=== PATIENT | female | born 2000 | race Caucasian/White ===

== ENCOUNTER 2025-03-28 22:11 | Emergency (ER) | payer OTHER ==
[~2025-03-28] VITALS: Ht 160 cm; Wt 96.6 kg
[2025-03-28 22:59] LABS: IMMATURE GRANULOCYTE ABSOLUTE 0.02 K/uL (0-1); NUCLEATED RED BLOOD CELLS 0.0 % (0.0-0.19); PLATELET COUNT (AUTO) 307 K/uL (130-400); RED BLOOD CELL COUNT(AUTO) 4.34 MIL/uL (4.00-5.50); RED CELL DISTRIBUTION WIDTH 13.0 % (11.0-15.5); WHITE BLOOD COUNT (AUTO) 8.8 K/uL (4.8-10.8)
[2025-03-28 23:18] LABS: APPEARANCE,URINE CLOUDY (CLEAR); GLUCOSE, URINE (UA) NEGATIVE (NEGATIVE); LEUKOCYTE ESTERASE ,URINE 250 Leu/uL (NEGATIVE); NITRATE,URINE NEGATIVE (NEGATIVE); OCCULT BLOOD,URINE LARGE (NEGATIVE)
[2025-03-28 23:19] LABS: ADD UA MICROSCOPIC YES
[2025-03-28 23:21] LABS: CREATININE 0.8 mg/dL (0.5-1.0); GLOMERULAR FILTR. RATE CALC 105.0 mL/min (>90); GLUCOSE,RANDOM 94.0 mg/dL (70-105); SODIUM SERUM 140.0 mmol/L (136-145); UREA NITROGEN, BLOOD 8.0 mg/dL (7-18)
[2025-03-28 23:24] LABS: SQUAMOUS EPITHELIAL CELL,UR MOD /HPF (0-2)
--- NOTE | 2025-03-28 23:45 | HMCIMG ---
EXAM: US Obstetrical, Complete <14 weeks. CLINICAL HISTORY: Vaginal bleeding during . TECHNIQUE: Transabdominal and transvaginal imaging of the maternal pelvis and a < 14-week gestation with image documentation. COMPARISON: None provided. FINDINGS: GESTATION: Single intrauterine gestational sac with pole. Yolk sac seen. CRL measures 1.98 cm, corresponding to 8 weeks 4 days. Gestational sac measures 2.95 cm, corresponding to 7 weeks 0 days. No cardiac activity. UTERUS: Measures 10.6 x 5.7 x 5.7 cm. No myometrial mass. CERVIX: Closed. Trace fluid within the cervix. OVARIES: Unremarkable. No mass. FREE FLUID: No free fluid. IMPRESSION: A pole seen within the uterus with no cardiac activity suggests early loss. /[place]
[2025-03-28 23:55] LABS: HCG,QUANTITATIVE 17090.0 mIU/mL (0-5)
--- NOTE | 2025-03-29 00:31 | ERN ---
General Chief Complaint: OB<20 weeks gest. Stated Complaint: 10.2 WEEKS, ABD PAIN. VAGINAL BLEEDING Time Seen by MD: 22:38 Time Seen by Midlevel: 22:38 Source: patient History of Present Illness Initial Comments 24-year-old female presents to the emergency department for evaluation of lower abdominal pain and vaginal bleeding that started earlier today. Patient is a ab 2 she has an appointment scheduled with her OBGYN in seven days. Allergies: Coded Allergies: No Known Allergies (Unverified Allergy, Unknown, 03/28/25) Past Medical History Past Medical History: No Pertinent History Past Surgical History: Female( History) LMP: Jan 15, 2025 : 4 Para: 1 Aborts: 2 ROS Dictation CONSTITUTIONAL: Negative except for HPI HEAD/FACE: Negative except for HPI EENT: Negative except for HPI RESPIRATORY: Negative except for HPI GASTROINTESTINAL/ABDOMINAL: Negative except for HPI GENITOURINARY: Negative except for HPI MUSCULOSKELETAL: Negative except for HPI INTEGUMENTARY: Negative except for HPI NEUROLOGICAL/PSYCH: Negative except for HPI HEMATOLOGIC/LYMPHATIC: Negative except for HPI All Systems Negative, Except as noted above. 13 point review of systems assessed and all negative except for above. Physical Exam Physical Exam Dictation Vital Signs reviewed General Appearance: Alert, oriented x 3, no acute distress, well developed, nourished. Head and Face: non-traumatic. Eyes: PERRL, pink conjunctivas, eyelid no trauma, anterior chamber with arcus senilis. Ears: Pinnas intact and no signs of trauma or erythema ear canals clear and no discharge TM no erythema Nose: No discharge, no bleeding. Oropharynx: Mouth normal, tongue pink, pharynx clear,no erythema, tonsils no exudates, no abscesses noted, mucous membrane moist Neck: Supple, non-tender, no thyromegaly, no masses, no JVD, no bruits Breast:Deferred Chest:No tenderness, no crepitus, no paradoxical movement, no retractions Lungs:Clear, well-ventilated, symmetric, no rales, no wheezing, no rhonchi, no stridor, good breath sounds bilaterally Heart: Regular rate, regular rhythm, no murmur, no gallops Vascular: no peripheral edema, Abdomen: Soft, positive bowel sounds, nondistended, no guarding, nontender, no rebound, no masses no hepatomegaly, no splenomegaly, no Benedict's sign, no hernias. Rectal: Deferred Genital: Deferred Neurological: Normal speech, motor function intact, sensory function intact Musculoskeletal: Neck nontender, full range of motion, back nontender, full range of motion, Extremities: nontender, full range of motion Skin: Color pink, dry, no turgor, no rash, no lacerations, no abrasions, no contusions. Lymphatic: Deferred Results Laboratory and Microbiology Lab and Micro Result Laboratory Tests Test 03/28/25 22:54 03/28/25 23:00 White Blood Count 8.8 K/uL (4.8-10.8) Red Blood Count 4.34 MIL/uL (4.00-5.50) Hemoglobin 13.4 g/dL (12.0-16.0) Hematocrit 39.2 % (36-48) Mean Corpuscular Volume 90.3 fL (79-99) Mean Corpuscular Hemoglobin 30.9 pg (27.0-33.0) Mean Corpuscular Hemoglobin Concent 34.2 g/dL (32.0-36.0) Red Cell Distribution Width 13.0 % (11.0-15.5) Platelet Count 307 K/uL (130-400) Mean Platelet Volume 9.3 fL (7.5-10.5) Immature Granulocyte % (Auto) 0.2 % (0-1) Neutrophils (%) (Auto) 60.0 % (40.0-77.0) Lymphocytes (%) (Auto) 31.5 % (21.0-51.0) Monocytes (%) (Auto) 6.5 % (3.0-13.0) Eosinophils (%) (Auto) 1.5 % (0.0-8.0) Basophils (%) (Auto) 0.3 % (0.0-5.0) Neutrophils # (Auto) 5.3 K/uL (1.8-7.7) Lymphocytes # (Auto) 2.8 K/uL (1.0-4.8) Monocytes # (Auto) 0.6 K/uL (0.1-1.0) Eosinophils # (Auto) 0.13 K/uL (0.00-0.70) Basophils # (Auto) 0.03 K/uL (0.00-0.20) Absolute Immature Granulocyte (auto 0.02 K/uL (0-1) Nucleated Red Blood Cells 0.0 % (0.0-0.19) Sodium Level 140 mmol/L (136-145) Potassium Level 3.6 mmol/L (3.5-5.1) Chloride Level 103 mmol/L (101-111) Carbon Dioxide Level 27 mmol/L (21-32) Blood Urea Nitrogen 8 mg/dL (7-18) Creatinine 0.8 mg/dL (0.5-1.0) Glomerular Filtration Rate Calc 105 mL/min (>90) Random Glucose 94 mg/dL (70-105) Total Calcium 9.4 mg/dL (8.5-10.1) Human Chorionic Gonadotropin, Quant 89704 mIU/mL (0-5) H Urine Color YELLOW (YELLOW) Urine Appearance CLOUDY (CLEAR) H Urine pH 5.5 (5.0-8.0) Urine Specific [place] 1.025 (1.001-1.031) Urine Protein 20 mg/dL (NEGATIVE) H Urine Glucose (UA) NEGATIVE mg/dL (NEGATIVE) Urine Ketones NEGATIVE mg/dL (NEGATIVE) Urine Occult Blood LARGE (NEGATIVE) H Urine Nitrate NEGATIVE (NEGATIVE) Urine Bilirubin NEGATIVE mg/dL (NEGATIVE) Urine Urobilinogen 0.2 mg/dL (0.2-1.0) Urine Leukocyte Esterase 250 Deepika/uL (NEGATIVE) H Urine RBC 11-25 /HPF (0-1) H Urine WBC 26-50 /HPF (0-1) H Urine Squamous Epithelial Cells MOD /HPF (0-2) Urine Bacteria RARE /HPF (None Seen) Urine Hyaline Casts 2-5 /LPF (0-1 /LPF) H Labs Reviewed?: Yes MDM MDM: Differential diagnosis: Threatened miscarriage, ectopic , early There are no social concerns with this patient. Prescription drug management Prescriptions will include: Not Medical management and examination interpretation discussions were had by me with other qualified healthcare professionals as indicated for the patient's care. ED Course Orders Procedure Category Date Status Time Cbc With Differential LAB 03/28/25 Complete 22:37 Basic Metabolic Panel LAB 03/28/25 Complete 22:37 Hcg,Quantitative LAB 03/28/25 Complete 22:37 Urinalysis Profile LAB 03/28/25 Complete 22:37 Us Ob <14 Weeks US 03/28/25 Resulted 22:37 Culture Urine TIMOTHY 03/28/25 In Process 23:19 Acetaminophen 325 Tab PHA 03/29/25 Logged (Tylenol 325mg Tab 00:30 Current Medications Medications (Trade) Dose Ordered Sig/Rebecca Route PRN Reason Start Time Stop Time Status Last Admin Dose Admin Acetaminophen (TYLenol 325MG TAB) 650 mg ONCE ONCE PO 03/29/25 00:30 03/29/25 00:31 UNV Vital Signs Date Time Temp Pulse Resp B/P (MAP) Pulse Ox O2 Delivery O2 Flow Rate FiO2 03/28/25 22:34 98.2 87 20 153/92 100 Room Air DX & DISP Disposition: Discharge Departure Impression: Primary Impression: Miscarriage Condition: Stable Additional Instructions: Your hCG quant level today was [id number]. Please keep appointment with your OBGYN in seven days as discussed. Return to the ER if you develop any new or worsening symptoms Referrals: SELF,REFERRAL (PCP) Time of Disposition: 00:30 I have reviewed the case, and I agree with, Diagnosis and Plan I performed the substantive portion of the visit. I have reviewed and per sonally made and approve the management plan that is documented in the note by myself or the LUCA. I acknowledge for responsibility for the patient's management plan. BRAEDEN CRAWFORD PAC Mar 29, 2025 00:31
[2025-03-29 00:42] VITALS: BP 148/87; PULSE 83; RESP 18; TEMP 98.4; O2SAT 99
== END 2025-03-29 00:44 | disposition home or self-care (01) ==
LOC: EDH 22:32
DX: O03.9 Complete or unspecified spontaneous abortion without complication (principal); Z98.890 Other specified postprocedural states; Z3A.10 10 weeks gestation of pregnancy
CPT/HCPCS: 36415; 76801; 80048; 81001; 84702; 85025; 87086; 99284

== ENCOUNTER 2025-03-31 06:02 | Emergency (ER) | payer OTHER ==
[~2025-03-31] VITALS: Ht 162.6 cm; Wt 96.6 kg
--- NOTE | 2025-03-31 06:33 | ERN ---
General Chief Complaint: OB<20 weeks gest. Stated Complaint: C/O VAGINAL BLEEDING W/LOWER ABD PAIN; 9 WKS Time Seen by MD: 06:13 History of Present Illness Initial Comments 24F presents for pelvic cramping and vaginal bleeding. AB2, 9 weeks . On 03/28/25 patient had cramping and spotting, she had an US performed which showed IUP at 8 weeks 4 days without cardiac activity. She reports that yesterday she had increasing bleeding and this morning she started with contraction-type pains and heavier bleeding. Allergies: Coded Allergies: No Known Allergies (Unverified Allergy, Unknown, 03/28/25) Past Medical History Past Medical History: No Pertinent History Past Surgical History: Female( History) LMP: Jan 15, 2025 : 4 Para: 1 Aborts: 3 ROS Dictation CONSTITUTIONAL: No chills, no fever, no weakness, no diaphoresis, no malaise. HEAD/FACE: No signs of trauma. EENT: No eye pain, no blurred vision, no tearing, no double vision, no ear pain, no ear discharge, no nose pain, no nasal congestion, no throat pain, no throat swelling, no mouth pain. RESPIRATORY: No cough, no orthopnea, no SOB, no stridor, no wheezing. CARDIOVASCULAR: No chest pain, no edema, no palpitations, no syncope. GASTROINTESTINAL/ABDOMINAL: No abdominal pain, no constipation, no diarrhea, no nausea, no vomiting. GENITOURINARY: Vaginal bleeding and pelvic cramping MUSCULOSKELETAL: No back pain, no gout, no joint pain, no joint swelling, no muscle pain, no muscle stiffness, no neck pain. INTEGUMENTARY: No change in color, no change in hair/nails, no dryness, no lesion, no lumps, no rash. NEUROLOGICAL/PSYCH: No anxiety, not depressed, no emotional problem, no headache, no numbness, no pre-existing deficit, no history of seizures, no tremors, no weakness. HEMATOLOGIC/LYMPHATIC: Not anemic, no history of blood clots, no apparent bleeding, no bruising, glands not swollen. All Systems Negative, Except as Noted. Physical Exam Physical Exam Dictation VITAL SIGNS: Reviewed. GENERAL APPEARANCE: Alert, oriented x3, moderate distress due to pain EYES: PERRL, pink conjunctivas, eyelid no trauma, anterior chamber clear. EARS: Pinnas intact and no signs of trauma or erythema. Ear canals clear and no discharge. TMs no erythema. NOSE: No discharge, no bleeding. OROPHARYNX: Mouth normal, teeth no caries, tongue pink. Pharynx clear, no erythema. Tonsils no exudates, no abscesses noted. Mucous membrane moist. NECK: Supple, non-tender, no thyromegaly, no masses, no JVD, no bruits. BREAST: Deferred. CHEST: No tenderness, no crepitus, no paradoxical movement, no retractions. LUNGS: Clear, well-ventilated, symmetric, no rales, no wheezing, no rhonchi, no stridor, good breath sounds bilaterally. HEART: Regular rate, regular rhythm, no murmur, no gallops. VASCULAR: No peripheral edema. ABDOMEN: Soft, positive bowel sounds, nondistended, no guarding, nontender, no rebound, no masses no hepatomegaly, no splenomegaly, no Benedict's sign, no hernias. RECTAL: Deferred. GENITAL: Deferred. NEUROLOGICAL: Normal speech, gross motor function intact, gross sensory function intact. MUSCULOSKELETAL: Neck nontender, full range of motion, back nontender, full range of motion. EXTREMITIES: Nontender, full range of motion. SKIN: Color pink, dry, no turgor, no rash, no lacerations, no abrasions, no contusions. LYMPHATICS: Deferred. Results Laboratory and Microbiology Lab and Micro Result Laboratory Tests Test 03/31/25 06:20 White Blood Count 11.3 K/uL (4.8-10.8) H Red Blood Count 4.51 MIL/uL (4.00-5.50) Hemoglobin 14.0 g/dL (12.0-16.0) Hematocrit 41.2 % (36-48) Mean Corpuscular Volume 91.4 fL (79-99) Mean Corpuscular Hemoglobin 31.0 pg (27.0-33.0) Mean Corpuscular Hemoglobin Concent 34.0 g/dL (32.0-36.0) Red Cell Distribution Width 13.1 % (11.0-15.5) Platelet Count 275 K/uL (130-400) Mean Platelet Volume 9.5 fL (7.5-10.5) Immature Granulocyte % (Auto) 0.4 % (0-1) Neutrophils (%) (Auto) 68.4 % (40.0-77.0) Lymphocytes (%) (Auto) 22.8 % (21.0-51.0) Monocytes (%) (Auto) 6.0 % (3.0-13.0) Eosinophils (%) (Auto) 2.0 % (0.0-8.0) Basophils (%) (Auto) 0.4 % (0.0-5.0) Neutrophils # (Auto) 7.8 K/uL (1.8-7.7) H Lymphocytes # (Auto) 2.6 K/uL (1.0-4.8) Monocytes # (Auto) 0.7 K/uL (0.1-1.0) Eosinophils # (Auto) 0.23 K/uL (0.00-0.70) Basophils # (Auto) 0.05 K/uL (0.00-0.20) Absolute Immature Granulocyte (auto 0.04 K/uL (0-1) Nucleated Red Blood Cells 0.0 % (0.0-0.19) MDM CC: vaginal bleeding pelvic cramping concern for miscarriage Historian: Patient Comorbidities: 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 Labs show stable hemoglobin US shows g sac, pole, no heartbeat Patient bleeding about 1 pad/hr overnight significant pain Given IV dialudid x 2 toradol, IV fluid Spoke with Dr Tye Lepe. Recommends transfer to [facility] ED. Spoke w/ Dr Trent at ED, accepts transfer. Patient updated. ED Course Orders Procedure Category Date Status Time Cbc With Differential LAB 03/31/25 Complete 06:13 Basic Metabolic Panel LAB 03/31/25 In Process 06:13 Us Ob Transvaginal US 03/31/25 Resulted 06:24 Type And Screen BBK 03/31/25 In Process 06:25 Hydromorphone 1 Mg PHA 03/31/25 Complete Inj (Dilaudid 1mg Inj 07:00 Hcg,Quantitative LAB 03/31/25 In Process 06:20 Current Medications Medications (Trade) Dose Ordered Sig/Rebecca Route PRN Reason Start Time Stop Time Status Last Admin Dose Admin Hydromorphone HCl (DiLAUDid 1MG INJ) 1 mg ONCE ONCE IVP 03/31/25 07:00 03/31/25 07:01 DC 03/31/25 06:59 Vital Signs Date Time Temp Pulse Resp B/P (MAP) Pulse Ox O2 Delivery O2 Flow Rate FiO2 03/31/25 06:19 98.4 75 18 113/69 98 Room Air* 0 21 03/31/25 06:04 97.3 110 20 119/86 99 Room Air DX & DISP Disposition: Transfer ([facility]) Departure Impression: Primary Impression: Miscarriage Condition: Stable Referrals: SELF,REFERRAL (PCP) LUIS DANIEL MELLO DO Mar 31, 2025 06:33
[2025-03-31 06:53] LABS: IMMATURE GRANULOCYTE ABSOLUTE 0.04 K/uL (0-1); NUCLEATED RED BLOOD CELLS 0.0 % (0.0-0.19); PLATELET COUNT (AUTO) 275 K/uL (130-400); RED BLOOD CELL COUNT(AUTO) 4.51 MIL/uL (4.00-5.50); RED CELL DISTRIBUTION WIDTH 13.1 % (11.0-15.5); WHITE BLOOD COUNT (AUTO) 11.3 K/uL (4.8-10.8)
--- NOTE | 2025-03-31 07:18 | HMCIMG ---
EXAM: US Obstetrical, Complete <14 weeks. CLINICAL HISTORY: Vaginal bleeding during . TECHNIQUE: Transvaginal imaging of the maternal pelvis and a < 14-week gestation with image documentation.Limited examination due to pain in the abdomen. COMPARISON: US obstetric dated 03/28/2025. FINDINGS: GESTATION: Single intrauterine gestational sac with pole. Yolk sac seen. CRL measures 1.98 cm, corresponding to 8 weeks 4 days. Gestational sac measures 2.93 cm, corresponding to 8 weeks 0 days. No cardiac activity. UTERUS: Measures 10 x 4 x 5.2 cm. No myometrial mass. CERVIX: Echogenic structure without vascularity in the cervix measuring 2 cm may represent a hemorrhagic clot OVARIES: Right ovary obscured. Left ovary measures 2.5 x 1.7 x 2.1 cm. No adnexal mass. FREE FLUID: No free fluid. IMPRESSION: A pole seen within the uterus with no cardiac activity suggests early loss. Echogenic structure without vascularity in the cervix measuring 2 cm may represent a hemorrhagic clot. /[place]
[2025-03-31 07:38] LABS: CREATININE 0.7 mg/dL (0.5-1.0); GLOMERULAR FILTR. RATE CALC 123.0 mL/min (>90); GLUCOSE,RANDOM 105.0 mg/dL (70-105); SODIUM SERUM 139.0 mmol/L (136-145); UREA NITROGEN, BLOOD 11.0 mg/dL (7-18)
[2025-03-31 07:42] VITALS: BP 125/60; PULSE 88; RESP 18; TEMP 98.5; O2SAT 96
--- NOTE | 2025-03-31 07:55 | NUR ---
Report given to AUSTIN Pham at [facility].
--- NOTE | 2025-03-31 08:00 | NUR ---
[facility] TO [employer] PATIENT
--- NOTE | 2025-03-31 08:08 | NUR ---
[facility]
== END 2025-03-31 08:08 | disposition short-term general hospital (02) ==
LOC: EDH 06:02
DX: O03.9 Complete or unspecified spontaneous abortion without complication (principal); Z3A.08 8 weeks gestation of pregnancy
CPT/HCPCS: 99285; 96374; 96375; 80048; 84702; 85025; 86850; 86900; 86901; 36415; 76817; 96376; J1885; J1171 ×2